=== PATIENT | female | born 1980 | race Caucasian/White ===

== ENCOUNTER 2016-07-12 23:24 | Inpatient (IN) | payer SELFPAY ==
[2016-07-12 23:39] VITALS: BMI 21.6
[2016-07-12] MEDS ORDERED: NS 1000 ML 1,000 ML IV SCH (23:45)
--- NOTE | 2016-07-12 23:52 | DR.GENAD ---
HPI - PCP Primary Care Physician: anahi elliott - Complaint/Symptoms Chief Complaint Doctors Comments: Patient complains of severe left facial swelling and problems swallowing after having her teeth removed yesterday in [place]. States she had surgery at Dr Mensah in [place] and she was told that she had two abscess in her teeth yesterday. She has been taking Amoxicillin and Ultram but it is not helping her pain. she is compaining of a severe headache with left facial pain. States this is the worst headache of her life. she denies fever, chills, cold or cough. Chief Complaint:: facial swelling after having all teeth removed blurred vision in left eye. bad headache hard to swallow Self Treatment fo Chief Complaint: amoxicillin, ice packs tramado, ibuprofen hour ago - Nurses notes reviewed Nurses Notes Review: Yes - Source History Provided: Patient, Family Member - Mode of Arrival Mode of Arrival: Ambulatory - Timing Onset of Chief Complaint: 07/12/16 Came on: Gradually - Duration Duration: Constant How lon Duration: Days - Location Location: left facial swelling - Modifying Factors Worsens:: nothing Improves:: nothing PMH - PMH Past Medical History: Yes Past Medical History: Arthritis Past Surgical History: Yes Surgical History: Appendectomy, Cholecystectomy, Spleenectomy, Tonsillectomy - Family History History of Family Medical Conditions: Yes Family Medical History: [place], Coronary Artery Disease, Hypertension - Social History Does patient currently use any type of tobacco product: No Have you used tobacco products in the last 12 months: Yes Type of Tobacco Use: Cigarettes How many years tobacco product used: 6 Does any household member use tobacco: No Alcohol Use: None Do you use any recreational Drugs:: No Lives With: Spouse Lives Where: Home - infectious screening In the last 2 months have you had wt loss of >10#?: YES Have you had fever, night sweats or hemotysis?: No Have you traveled outside the country in the last 6 months?: No Isolation: Standard ROS - Review of Systems Constitutional: No Symptoms Reported, Loss of Appetite. negative: See HPI, Chills, Diaphoresis, Fever, Malaise, Weakness, Irritable, Fatigue, Other Eyes: No Symptoms Reported, Blurred Vision (left eye blurred) ENTM: No Symptoms Reported, Mouth Pain, Mouth Swelling (left lower lip with ecchymosis, swelling;), Throat Pain Respiratoy: No Symptoms Reported Cardiovascular: No Symptoms Reported. negative: See HPI, Chest Pain, Edema, Palpitations, Syncope, Cyanosis, Skin Mottling, Other Gastrointestinal/Abdominal: No Symptoms Reported Genitourinary: No Symptoms Reported Neurological: No Symptoms Reported Musculoskeletal: No Symptoms Reported Integumentary: No Symptoms Reported Hematologic/Lymphatic: No Symptoms Reported Endocrine: No Symptoms Reported, Decreased Appetite Psychiatric: No Symptoms Reported. negative: See HPI, Anxiety, Depression, Hallucinations, Excessive crying, Suicidal, Other PE - Vital Signs Vitals: Temperature 98.8 F Pulse Rate 68 Respiratory Rate 16 Blood Pressure [Right Arm] 129/80 Blood Pressure 142/75 O2 Sat by Pulse Oximetry 97 - General Limitations: No Limitations General Appearance: Alert, In Distress (moderate) - Head Head Exam: Normal Inspection, Atraumatic (left facial swelling, ecchymosis, lip with ecchymosis; swelling around left eye; right jaw with slight swelling and erythema. Severe bruising left face), Normocephalic - Eyes Eye exam: Normal Appearance, PERRL, EOMI, Periorbital Swelling (left), Periorbital Tenderness (left). negative: Scleral Icterus, Conjunctival Injection, Nystagmus, Miosis, Mydrasis, Other - ENT ENT Exam: Normal Exam, Normal Oropharynx, Normal External Ear Exam, TM's Normal Bilaterally (swelling left jaw, lips and mouth. Mouth with surgical sutures, ecchymosis gum with clots) TM/Canal Exam: Bilateral Normal Nose Exam: Normal Nose Exam, Sinus Tenderness Mouth Exam: Normal Inspection, Lip Swelling (left lower lip swollen) Throat Exam: Normal Inspection - Neck Neck Exam: Normal Inspection, Full ROM, Trachea Midline - Chest Chest Inspection: Normal Inspection, Symmetric Chest Wall Rise - Respiratory Respiratory Exam: Normal Lung Sounds Bilat Respiratory Exam: Bilateral Clear to Auscultation - Cardiovascular Cardiovascular Exam: Regular Rate, Normal Rhythm, Normal Heart Sounds - Abdominal Exam Abdominal Exam: Normal Inspection, Normal Bowel Sounds, Soft Abdominal Tenderness: negative: RUQ, RLQ, LUQ, LLQ, Epigastrium, Suprapubic, Diffuse, Mild, Moderate, Severe, Other - Extremities Extremities Exam: Normal Inspection, Full ROM, Normal Capillary Refill. negative: Tenderness, Edema, Joint Swelling, Calf Tenderness, Other - Back Back Exam: Normal Inspection, Full ROM - Neurologic Neurological Exam: Alert, Oriented X3, CN II-XII Intact, Normal Gait, Reflexes Normal - Psychiatric Psychiatric Exam: Normal Affect, Normal Mood - Skin Skin Exam: Warm, Dry, Intact, Normal Color, Erythema Course - Reevaluation 1st: Improved - Consultation Called: 03:14 Call Returned: 03:14 (Dr. Hummel to admit) - Education/Counseling Education/Counseling: Patient, Education Educated On: Treatment, Diagnosis, Prognosis, Needs for Follow Up ROR - Labs Reviewed Laboratory Results Reviewed?: Yes (all labs and x-ray results reviewed and discussed with patient) Result Diagrams: 07/12/16 23:55 07/12/16 23:55 Laboratory: WBC 14.9 X10^3/uL (3.6-10.0) H 07/12/16 23:55 RBC 3.92 X10^6/uL (3.5-5.4) 07/12/16 23:55 Hgb 12.1 g/dL (12.0-16.0) 07/12/16 23:55 Hct 36.7 % (36.0-47.0) 07/12/16 23:55 MCV 93.5 fL (80.0-100.0) 07/12/16 23:55 MCH 30.9 pg (27.0-34.0) 07/12/16 23:55 MCHC 33.0 g/dL (33.0-35.0) 07/12/16 23:55 RDW 14.3 % (11.6-16.5) 07/12/16 23:55 Plt Count 227 X10^3/uL (150.0-450.0) 07/12/16 23:55 Plt Count Comment Adequate (ADEQUATE) 07/12/16 23:55 MPV 11.4 fL (7.4-11.0) H 07/12/16 23:55 Neut % 68.1 % (42.0-75.0) 07/12/16 23:55 Lymph % 21.7 % (21.0-51.0) 07/12/16 23:55 [place] % 9.5 % (0.0-13.0) 07/12/16 23:55 Eos % 0.2 % (0.9-2.9) L 07/12/16 23:55 Baso % 0.5 % (0.2-1.0) 07/12/16 23:55 Neut # 10.1 x10^3/uL (2.2-4.8) H 07/12/16 23:55 Lymph # 3.2 X10^3/uL (1.3-2.9) H 07/12/16 23:55 [place] # 1.4 x10^3/uL (0.3-0.8) H 07/12/16 23:55 Eos # 0.0 x10^3/uL (0.0-0.2) 07/12/16 23:55 Baso # 0.1 X10^3/uL (0.0-0.1) 07/12/16 23:55 Absolute Nucleated RBC 0.1 /100WBC 07/12/16 23:55 Plt Morphology Comment Normal (NORMAL) 07/12/16 23:55 RBC Morphology Normal (NORMAL) 07/12/16 23:55 INR Target Range - 07/12/16 23:55 INR 1.02 (0.8-1.3) 07/12/16 23:55 PTT 37.1 SECONDS (22.9-36.5) H 07/12/16 23:55 PTT Comment - 07/12/16 23:55 Sodium 140 mmol/L (136-145) 07/12/16 23:55 Corrected Sodium TNP 07/12/16 23:55 Potassium 3.7 mmol/L (3.5-5.1) 07/12/16 23:55 Chloride 104 mmol/L (98-107) 07/12/16 23:55 Carbon Dioxide 27.7 mmol/L (21-32) 07/12/16 23:55 BUN 10 mg/dL (7-18) 07/12/16 23:55 Creatinine 0.56 mg/dL (0.55-1.02) 07/12/16 23:55 Est GFR (MDRD) Af Amer > 60 (>60) 07/12/16 23:55 Est GFR (MDRD) Non-Af > 60 (>60) 07/12/16 23:55 Glucose 99 mg/dL (65-99) 07/12/16 23:55 Calcium 8.8 mg/dL (8.5-10.1) 07/12/16 23:55 Corrected Calcium TNP 07/12/16 23:55 Magnesium 2.0 mg/dL (1.7-2.9) 07/12/16 23:55 Total Bilirubin 0.60 mg/dL (0.2-1.0) 07/12/16 23:55 AST 19 Units/L (15-37) 07/12/16 23:55 ALT 29 Units/L (12-78) 07/12/16 23:55 Alkaline Phosphatase 122 Units/L (46-116) H 07/12/16 23:55 Creatine Kinase 118 Units/L (26-192) 07/12/16 23:55 CK-MB (CK-2) 1.2 ng/mL (0-4.0) 07/12/16 23:55 CK/CKMB % Calc 1.0 % (<4) 07/12/16 23:55 Troponin I < 0.02 ng/mL (0-1.5) 07/12/16 23:55 Total Protein 7.4 g/dL (6.4-8.2) 07/12/16 23:55 Albumin 3.7 g/dL (3.4-5.0) 07/12/16 23:55 Globulin 3.7 g/dL (2.5-4.5) 07/12/16 23:55 Albumin/Globulin Ratio 1.0 Ratio (1.1-2.1) L 07/12/16 23:55 - XRAY XRAY Interpreted by: Radiologist (CT facial bone: Soft tissue swelling of face suggest generalized edema vs cellulitis) XRAY Findings: CT Brain: No acute intracranial process identified - Diagnosis Discharge Problem: Cellulitis diffuse, face, Cellulitis of gingiva, Facial edema, s/p multiple dental extractions Ethmoid sinusitis Qualifiers: Chronicity: acute - Discharge Plan Disposition: ADMITTED INPATIENT Condition: Stable - Follow ups/Referrals Follow ups/Referrals: MARIZA ELLIOTT [Primary Care Provider] - 3 days - Instructions
[2016-07-12] MEDS ORDERED: MORPHINE SULFATE INJ 2 MG IVP ONE (23:59)
[2016-07-13] MEDS ORDERED: NS 1000 ML 1,000 ML ONE (00:25)
[2016-07-13] MEDS ORDERED: MORPHINE SULFATE INJ 2 MG ONE (00:26)
[2016-07-13 00:41] LABS: BASOPHILS # (AUTO) 0.1 X10^3/uL (0.0-0.1); BASOPHILS % (AUTO) 0.5 % (0.2-1.0); EOSINOPHILS % (AUTO) 0.2 % (0.9-2.9); HEMATOCRIT 36.7 % (36.0-47.0); HEMOGLOBIN 12.1 g/dL (12.0-16.0); LYMPHOCYTES # (AUTO) 3.2 X10^3/uL (1.3-2.9); LYMPHOCYTES % (AUTO) 21.7 % (21.0-51.0); MEAN CORPUSCULAR HEMOGLOBIN 30.9 pg (27.0-34.0); MEAN CORPUSCULAR VOLUME 93.5 fL (80.0-100.0); MEAN PLATELET VOLUME 11.4 fL (7.4-11.0); MONOCYTES # (AUTO) 1.4 x10^3/uL (0.3-0.8); MONOCYTES % (AUTO) 9.5 % (0.0-13.0); NEUTROPHILS # (AUTO) 10.1 x10^3/uL (2.2-4.8); NEUTROPHILS % (AUTO) 68.1 % (42.0-75.0); PLATELET COUNT 227 X10^3/uL (150.0-450.0); RED BLOOD COUNT 3.92 X10^6/uL (3.5-5.4); RED CELL DISTRIBUTION WIDTH 14.3 % (11.6-16.5)
[2016-07-13 00:47] LABS: BLOOD UREA NITROGEN 10 mg/dL (7-18); CALCIUM 8.8 mg/dL (8.5-10.1); CARBON DIOXIDE 27.7 mmol/L (21-32); CHLORIDE 104 mmol/L (98-107); CREATININE 0.56 mg/dL (0.55-1.02); GLUCOSE 99 mg/dL (65-99); SODIUM 140 mmol/L (136-145); TROPONIN I < 0.02 ng/mL (0-1.5); eGFR BLACK RACES > 60 (>60); eGFR NON BLACK RACES > 60 (>60)
[2016-07-13 01:00] LABS: PLATELET MORPHOLOGY COMMENT NORMAL (NORMAL)
--- NOTE | 2016-07-13 01:02 | CT ---
CT brain without contrast Indication: Headache after dental surgery Comparison: 02/15/2015 Technique: Multiple axial images of the brain were obtained from the skull base to the vertex without administr ation of IV contrast. Coronal and sagittal images were also provided. Radiation dose reduction techniques were performed utilizing adjustment for MA/kVP based on patient body size. Findings: No acute intraparenchymal hemorrhage or mass can be identified. No extra-axial fluid collections ar e seen. No alteration in the attenuation of the brain parenchyma can be identified to suggest acute or subacute ischemic change. The ventricular system is symmetric and nondilated. The extracranial structures are grossly unremarkable. IMPRESSION: 1. No acute intracranial process is identified. Reported By:
[2016-07-13 01:06] LABS: ALANINE AMINOTRANSFERASE 29 Units/L (12-78); ALBUMIN 3.7 g/dL (3.4-5.0); ALKALINE PHOSPHATASE 122 Units/L (46-116); ASPARTATE AMINO TRANSFERASE 19 Units/L (15-37); CREATINE KINASE 118 Units/L (26-192); CREATINE KINASE MB 1.2 ng/mL (0-4.0); TOTAL PROTEIN 7.4 g/dL (6.4-8.2)
--- NOTE | 2016-07-13 01:15 | CT ---
CT facial bones without contrast Indication: fascial edema after tooth extraction 1 day prior Comparison: none available Technique: Multiple axial images of the facial structures were obtained from the mandible to superio r portions of the orbits. Radiation dose reduction techniques were performed utilizing adjustment for MA/kVP based on patient body size. Findings: The patient is edentulous. There is diffuse soft tissue swelling within the face without localizing fluid collection or abscess identified given the limitations of a noncontrast examination. Aside for minimal mucosal thickening of the posterior left ethmoid air cells. The ethmoid, sphenoid, maxillar y and frontal sinuses are clear. Mastoid air cells are clear. No acute facial bone fracture. Mandibl e is normal. Impression: Generalized soft tissue swelling within the face without localizing fluid collection or abscess formation identified given the limitations of a noncontrast examination. Clinical correlatio n is needed as both generalized edema versus cellulitis are considerations based on imaging findings . Reported By:
[2016-07-13] MEDS ORDERED: VANCOMYCIN HCL 1 GM VIAL IV STA (02:43)
[2016-07-13] MEDS ORDERED: PHENERGAN TAB 25 MG PO PRN (03:19)
[2016-07-13] MEDS ORDERED: REGLAN TAB 10 MG PO PRN (03:19)
[2016-07-13] MEDS ORDERED: ZOFRAN INJ 4 MG VIAL IVP PRN (03:23)
[2016-07-13] MEDS ORDERED: VANCOMYCIN 1 GM IV ONE (03:25)
--- NOTE | 2016-07-13 03:27 | RAD ---
AP Chest Indication: Fascial edema Comparison: 02/06/2016 Findings: The trachea is midline. The cardiac silhouette is unremarkable. The lungs are clear without focal infiltrate or effusion. The bony thorax is unremarkable. IMPRESSION: 1. No acute cardiopulmonary abnormality. Reported By:
[2016-07-13] MEDS ORDERED: MERREM VIAL ONE (03:28)
[2016-07-13] MEDS ORDERED: NS 100 ML IV 100 ML IV ONE ×2 (03:29→14:11)
[2016-07-13] MEDS: MERREM VIAL 1,000 MG in NS 100 ML IV 100 ML IV SCH ×3 (03:36→14:36)
[2016-07-13] MEDS: MORPHINE SULFATE INJ 4 MG IVP PRN ×4 (04:37→13:36)
[2016-07-13] MEDS: D5 1/2 NS + KCL 20 MEQ/L 1,000 ML IV SCH ×3 (06:28→21:03)
[2016-07-13] MEDS: MOTRIN TAB 600 MG PO PRN ×2 (06:41→15:06)
[2016-07-13] MEDS: PROTONIX INJ 40 MG VIAL IVP SCH (09:27)
[2016-07-13] MEDS: NORCO 5/325 MG TAB PO PRN ×2 (09:28→23:27)
[2016-07-13] MEDS: LOVENOX INJ 40 MG SYR SC SCH (09:29)
[2016-07-13] MEDS: BACTRIM DS TAB PO SCH ×2 (13:38→22:03)
[2016-07-13] MEDS ORDERED: NS 100 ML IV + SPIKE MINIBAG* 100 ML IV ONE ×2 (14:10→21:59)
[2016-07-13] MEDS ORDERED: TORADOL 30 MG VIAL IVP PRN (16:28)
[2016-07-13] MEDS: DILAUDID IVP PRN (19:58)
[2016-07-13] MEDS: ZOSYN VIAL 4.5 GM IV SCH (22:03)
[2016-07-14] MEDS: DILAUDID IVP PRN ×5 (04:04→20:28)
[2016-07-14] MEDS ORDERED: NS 100 ML IV + SPIKE MINIBAG* 100 ML IV ONE ×3 (04:07→20:08)
[2016-07-14 05:16] LABS: BASOPHILS # (AUTO) 0.1 X10^3/uL (0.0-0.1); BASOPHILS % (AUTO) 1.1 % (0.2-1.0); EOSINOPHILS # (AUTO) 0.1 x10^3/uL (0.0-0.2); HEMATOCRIT 34.7 % (36.0-47.0); HEMOGLOBIN 11.5 g/dL (12.0-16.0); LYMPHOCYTES # (AUTO) 5.7 X10^3/uL (1.3-2.9); LYMPHOCYTES % (AUTO) 53.4 % (21.0-51.0); MEAN CORPUSCULAR HEMOGLOBIN 30.8 pg (27.0-34.0); MEAN CORPUSCULAR HGB CONC 33.1 g/dL (33.0-35.0); MEAN PLATELET VOLUME 10.5 fL (7.4-11.0); MONOCYTES # (AUTO) 1.2 x10^3/uL (0.3-0.8); MONOCYTES % (AUTO) 11.7 % (0.0-13.0); NEUTROPHILS # (AUTO) 3.5 x10^3/uL (2.2-4.8); NEUTROPHILS % (AUTO) 32.8 % (42.0-75.0); PLATELET COUNT 214 X10^3/uL (150.0-450.0); RED BLOOD COUNT 3.73 X10^6/uL (3.5-5.4); RED CELL DISTRIBUTION WIDTH 14.1 % (11.6-16.5); WHITE BLOOD COUNT 10.7 X10^3/uL (3.6-10.0)
[2016-07-14] MEDS: ZOSYN VIAL 4.5 GM IV SCH ×3 (05:21→22:11)
[2016-07-14] MEDS: D5 1/2 NS + KCL 20 MEQ/L 1,000 ML IV SCH ×5 (05:21→23:05)
[2016-07-14 05:22] LABS: ALANINE AMINOTRANSFERASE 41 Units/L (12-78); ALBUMIN 3.1 g/dL (3.4-5.0); ALKALINE PHOSPHATASE 112 Units/L (46-116); ASPARTATE AMINO TRANSFERASE 48 Units/L (15-37); BLOOD UREA NITROGEN 8 mg/dL (7-18); CALCIUM 8.5 mg/dL (8.5-10.1); CARBON DIOXIDE 28.1 mmol/L (21-32); CHLORIDE 107 mmol/L (98-107); COR CA(FOR HYPOALB) 9.2 mg/dL (8.5-10.1); CREATININE 0.58 mg/dL (0.55-1.02); GLUCOSE 103 mg/dL (65-99); SODIUM 142 mmol/L (136-145); TOTAL PROTEIN 6.7 g/dL (6.4-8.2); eGFR BLACK RACES > 60 (>60); eGFR NON BLACK RACES > 60 (>60)
[2016-07-14 05:55] LABS: GIANT PLATELET FEW
[2016-07-14 05:56] LABS: PLATELET MORPHOLOGY COMMENT ABNORMAL (NORMAL)
[2016-07-14] MEDS: NORCO 5/325 MG TAB PO PRN ×3 (06:39→23:41)
[2016-07-14] MEDS: LOVENOX INJ 40 MG SYR SC SCH (08:45)
[2016-07-14] MEDS: PROTONIX INJ 40 MG VIAL IVP SCH (08:48)
[2016-07-14] MEDS: BACTRIM DS TAB PO SCH ×2 (08:48→20:28)
[2016-07-14] MEDS: MORPHINE SULFATE INJ 4 MG IVP PRN (08:49)
[2016-07-14] MEDS: MOTRIN TAB 600 MG PO PRN (10:00)
[2016-07-14 10:26] LABS: WHITE BLOOD COUNT 15.7 X10^3/uL (3.6-10.0)
--- NOTE | 2016-07-14 11:51 | DR.H&P ---
H&P - History & Physical for Day of: H&P Date: 07/13/16 - Chief Complaint Chief Complaint: facial pain/swelling, severe headache - Allergies Allergies/Adverse Reactions: Allergies Allergy/AdvReac Type Severity Reaction Status Date / Time Levofloxacin [From Levaquin] Allergy Verified 02/06/16 17:22 Moxifloxacin [From Avelox] Allergy Verified 02/06/16 17:22 - History of Present Illness History of Present Illness: The patient is a 36-year-old white female is a primary care patient at [facility], who underwent extensive bilateral, upper dental extractions in [facility] approximately 1-2 days ago. The patient presents to the emergency room complaining of severe bilateral facial pain, bruising, and swelling associated with an intractable headache. The patient was noted to have sutures in the upper, bilateral gums at the site of her previous extractions with no evidence of abscess formation or purulent drainage. CT scan of the head was unremarkable except for left, ethmoid sinusitis. Patient was started on IV antibodies and admitted for further workup. - Past Medical History Past Medical History: Arthritis - Past Surgical History Surgical History: Appendectomy, Cholecystectomy, Spleenectomy, Tonsillectomy - Family History Family Medical History: [place], Coronary Artery Disease, Hypertension - Social History Does patient currently use any type of tobacco product: Yes Have you used tobacco products in the last 12 months: Yes Type of Tobacco Use: Cigarettes How many years tobacco product used: 6 Does any household member use tobacco: No Alcohol Use: None Drug Use: None - Review of Systems Constitutional: See HPI Eyes: No Symptoms Reported (esterday a soda a day. He'll. The urinal will forget about it) ENT: See HPI, Mouth Pain Respiratory: No Symptoms Reported Cardiovascular: No Symptoms Reported Gastrointestinal: No Symptoms Reported Genitourinary: No Symptoms Reported Musculoskeletal: No Symptoms Reported Skin: No Symptoms Reported Neurological: See HPI - Physical Exam Vital Signs: Temperature 97.6 F Pulse Rate [Right Brachial] 62 Respiratory Rate 18 Blood Pressure [Right Arm] 122/70 O2 Sat by Pulse Oximetry 98 Oriented: Normal Eyes: Normal Ear: Normal Nose: Normal Throat: Normal, Other (Sutures noted involving the upper gumline bilaterally at the site of previous extensive dental extractions) Respiratory: Clear Throughout Cardiovascular: Normal : Normal Auscultation: Bowel Sounds: Normal Palpation: Normal Tenderness: Normal Skin: Other (Extensive perioral ecchymoses consistent with hand cramps associated with previous dental extractions. Moderate erythema and marked soft tissue swelling of the upper face bilaterally in the zygomatic arch regions.) Musculoskeletal: Normal Psychiatric: Normal Mood Description: Calm Affect: Normal Speech Pattern: Clear - Assessment/Plan (1) Cellulitis diffuse, face Status: Acute Plan: 1. Admit for outpatient observation. 2. Normal saline at 100 cc per hour. 3. CT scan of the head and facial bones. 4. UA C&S. 5. CMP and CBC. 6. DC Merrem as initiated in the emergency room. 7. Zosyn 4.5 g IV every 8 hours. 8. Continue [place] 5/325; 2 tabs by mouth every 6 hours when necessary for pain. 9. Continue morphine 3-4 mg IV every 4 hours when necessary for pain. 10. Dilantin 1 mg IV every 4 hours when necessary for breakthrough pain. 11. Continue home medications. 12. For further orders see chart (2) Intractable headache Qualifiers: Headache type: H Headache chronicity pattern: H Status: Acute Plan: as above (3) Traumatic ecchymosis of face Qualifiers: Encounter type: E Narrative Support Text: due to recent dental extractions Status: Acute Plan: as above. (4) Ethmoid sinusitis Qualifiers: Chronicity: acute Recurrence: R Status: Acute Plan: as above
--- NOTE | 2016-07-14 16:42 | PCM.PROG ---
Progress Note - Progress Note for Day of Date: 07/14/16 - Subjective Subjective: CONTINUED WITH SERVERE MOUTH PAIN S/P DENTAL EXTRACTION, PT ASKING FOR SOFT DIET UNABLE TO EAT IN SEVERAL DAYS. PLAN TO CONTINUE IV ATBX, REPEAT AM LABS, PAIN CONTROL AND HYDRATION - Past Medical Family Social History Past Med/Fam/Surg Hx: No changes since H&P Allergies: Allergies Levofloxacin [From Levaquin] Allergy (Verified 02/06/16 17:22) Moxifloxacin [From Avelox] Allergy (Verified 02/06/16 17:22) - Review of Systems ROS: No change since H&P - Vital Signs and I&O's Vital Signs: Temperature 98 F Pulse Rate [Right Brachial] 66 Respiratory Rate 18 Blood Pressure [Right Arm] 125/60 O2 Sat by Pulse Oximetry 98 Intake and Output: Intake & Output 07/12/16 07/13/16 07/14/16 07/15/16 11:59 11:59 11:59 11:59 Intake Total 1462 840 Output Total 1000 Balance 462 840 - Physical Exam Oriented: Normal Eyes: Normal Ear: Normal Nose: Normal Throat: Normal, Other (Sutures noted involving the upper gumline bilaterally at the site of previous extensive dental extractions) Cardiovascular: Normal : Normal Auscultation: Bowel Sounds: Normal Tenderness: Normal Skin: Other (Extensive perioral ecchymoses consistent with hand cramps associated with previous dental extractions. Moderate erythema and marked soft tissue swelling of the upper face bilaterally in the zygomatic arch regions.) Musculoskeletal: Normal Psychiatric: Normal Mood Description: Calm Affect: Normal Speech Pattern: Clear - Laboratory and Diagnostics Result Diagrams: 07/14/16 03:50 07/14/16 03:50 Labs: Laboratory WBC 10.7 X10^3/uL (3.6-10.0) H 07/14/16 03:50 RBC 3.73 X10^6/uL (3.5-5.4) 07/14/16 03:50 Hgb 11.5 g/dL (12.0-16.0) L 07/14/16 03:50 Hct 34.7 % (36.0-47.0) L 07/14/16 03:50 MCV 93.0 fL (80.0-100.0) 07/14/16 03:50 MCH 30.8 pg (27.0-34.0) 07/14/16 03:50 MCHC 33.1 g/dL (33.0-35.0) 07/14/16 03:50 RDW 14.1 % (11.6-16.5) 07/14/16 03:50 Plt Count 214 X10^3/uL (150.0-450.0) 07/14/16 03:50 Plt Count Comment Adequate (ADEQUATE) 07/14/16 03:50 MPV 10.5 fL (7.4-11.0) 07/14/16 03:50 Neut % 32.8 % (42.0-75.0) L 07/14/16 03:50 Lymph % 53.4 % (21.0-51.0) H 07/14/16 03:50 [place] % 11.7 % (0.0-13.0) 07/14/16 03:50 Eos % 1.0 % (0.9-2.9) 07/14/16 03:50 Baso % 1.1 % (0.2-1.0) H 07/14/16 03:50 Neut # 3.5 x10^3/uL (2.2-4.8) 07/14/16 03:50 Lymph # 5.7 X10^3/uL (1.3-2.9) H 07/14/16 03:50 [place] # 1.2 x10^3/uL (0.3-0.8) H 07/14/16 03:50 Eos # 0.1 x10^3/uL (0.0-0.2) 07/14/16 03:50 Baso # 0.1 X10^3/uL (0.0-0.1) 07/14/16 03:50 Absolute Nucleated RBC 0.0 /100WBC 07/14/16 03:50 Giant Platelets Few 07/14/16 03:50 Plt Morphology Comment Abnormal (NORMAL) A 07/14/16 03:50 RBC Morphology Normal (NORMAL) 07/14/16 03:50 INR Target Range - 07/12/16 23:55 INR 1.02 (0.8-1.3) 07/12/16 23:55 PTT 37.1 SECONDS (22.9-36.5) H 07/12/16 23:55 PTT Comment - 07/12/16 23:55 Sodium 142 mmol/L (136-145) 07/14/16 03:50 Corrected Sodium TNP 07/14/16 03:50 Potassium 4.7 mmol/L (3.5-5.1) 07/14/16 03:50 Chloride 107 mmol/L (98-107) 07/14/16 03:50 Carbon Dioxide 28.1 mmol/L (21-32) 07/14/16 03:50 BUN 8 mg/dL (7-18) 07/14/16 03:50 Creatinine 0.58 mg/dL (0.55-1.02) 07/14/16 03:50 Est GFR (MDRD) Af Amer > 60 (>60) 07/14/16 03:50 Est GFR (MDRD) Non-Af > 60 (>60) 07/14/16 03:50 Glucose 103 mg/dL (65-99) H 07/14/16 03:50 Calcium 8.5 mg/dL (8.5-10.1) 07/14/16 03:50 Corrected Calcium 9.2 mg/dL (8.5-10.1) 07/14/16 03:50 Magnesium 2.0 mg/dL (1.7-2.9) 07/12/16 23:55 Total Bilirubin 0.30 mg/dL (0.2-1.0) 07/14/16 03:50 AST 48 Units/L (15-37) H 07/14/16 03:50 ALT 41 Units/L (12-78) 07/14/16 03:50 Alkaline Phosphatase 112 Units/L (46-116) 07/14/16 03:50 Creatine Kinase 118 Units/L (26-192) 07/12/16 23:55 CK-MB (CK-2) 1.2 ng/mL (0-4.0) 07/12/16 23:55 CK/CKMB % Calc 1.0 % (<4) 07/12/16 23:55 Troponin I < 0.02 ng/mL (0-1.5) 07/12/16 23:55 Total Protein 6.7 g/dL (6.4-8.2) 07/14/16 03:50 Albumin 3.1 g/dL (3.4-5.0) L 07/14/16 03:50 Globulin 3.6 g/dL (2.5-4.5) 07/14/16 03:50 Albumin/Globulin Ratio 0.9 Ratio (1.1-2.1) L 07/14/16 03:50 - Plan (1) Cellulitis diffuse, face Status: Acute Plan: CONTINUE Zosyn 4.5 g IV every 8 hours. Continue [place] 5/325; 2 tabs by mouth every 6 hours when necessary for pain. Continue morphine 3-4 mg IV every 4 hours when necessary for pain. DilaUDID 1 mg IV every 4 hours when necessary for breakthrough pain. Continue home medications (2) Cellulitis of gingiva Status: Acute (3) Ethmoid sinusitis Status: Acute Qualifiers: Chronicity: acute Recurrence: R Plan: as above
[2016-07-15] MEDS: DILAUDID IVP PRN ×7 (00:35→17:02)
[2016-07-15 05:36] LABS: ALANINE AMINOTRANSFERASE 74 Units/L (12-78); ALBUMIN 3.4 g/dL (3.4-5.0); ALKALINE PHOSPHATASE 117 Units/L (46-116); ASPARTATE AMINO TRANSFERASE 62 Units/L (15-37); BLOOD UREA NITROGEN 5 mg/dL (7-18); CALCIUM 9.2 mg/dL (8.5-10.1); CARBON DIOXIDE 30.8 mmol/L (21-32); CHLORIDE 105 mmol/L (98-107); GLUCOSE 100 mg/dL (65-99); SODIUM 141 mmol/L (136-145); TOTAL PROTEIN 7.3 g/dL (6.4-8.2); eGFR BLACK RACES > 60 (>60); eGFR NON BLACK RACES > 60 (>60)
[2016-07-15 05:55] LABS: BASOPHILS # (AUTO) 0.1 X10^3/uL (0.0-0.1); BASOPHILS % (AUTO) 0.8 % (0.2-1.0); EOSINOPHILS # (AUTO) 0.2 x10^3/uL (0.0-0.2); EOSINOPHILS % (AUTO) 1.5 % (0.9-2.9); HEMATOCRIT 36.4 % (36.0-47.0); HEMOGLOBIN 11.9 g/dL (12.0-16.0); LYMPHOCYTES # (AUTO) 5.8 X10^3/uL (1.3-2.9); LYMPHOCYTES % (AUTO) 48.8 % (21.0-51.0); MEAN CORPUSCULAR HEMOGLOBIN 30.6 pg (27.0-34.0); MEAN CORPUSCULAR HGB CONC 32.7 g/dL (33.0-35.0); MEAN CORPUSCULAR VOLUME 93.7 fL (80.0-100.0); MEAN PLATELET VOLUME 11.6 fL (7.4-11.0); MONOCYTES # (AUTO) 1.1 x10^3/uL (0.3-0.8); MONOCYTES % (AUTO) 9.1 % (0.0-13.0); NEUTROPHILS # (AUTO) 4.7 x10^3/uL (2.2-4.8); NEUTROPHILS % (AUTO) 39.8 % (42.0-75.0); PLATELET COUNT 233 X10^3/uL (150.0-450.0); RED BLOOD COUNT 3.89 X10^6/uL (3.5-5.4); RED CELL DISTRIBUTION WIDTH 14.2 % (11.6-16.5); WHITE BLOOD COUNT 11.8 X10^3/uL (3.6-10.0)
[2016-07-15 06:10] LABS: GIANT PLATELET FEW; PLATELET MORPHOLOGY COMMENT ABNORMAL (NORMAL)
[2016-07-15] MEDS: ZOSYN VIAL 4.5 GM 4.5 GM in NS 100 ML IV + SPIKE MINIBAG* 100 ML IV SCH ×3 (06:13→21:10)
[2016-07-15] MEDS: LOVENOX INJ 40 MG SYR SC SCH (08:45)
[2016-07-15] MEDS: BACTRIM DS TAB PO SCH ×2 (08:45→21:09)
[2016-07-15] MEDS: PROTONIX INJ 40 MG VIAL IVP SCH (08:46)
[2016-07-15] MEDS: NORCO 5/325 MG TAB PO PRN ×2 (12:19→21:09)
[2016-07-15] MEDS: D5 1/2 NS + KCL 20 MEQ/L 1,000 ML IV SCH ×2 (16:17→22:04)
[2016-07-15] MEDS ORDERED: AMBIEN PO ONE (18:29)
--- NOTE | 2016-07-15 18:29 | PCM.PROG ---
Progress Note - Progress Note for Day of Date: 07/15/16 - Subjective Subjective: CONTINUED WITH SERVERE MOUTH PAIN S/P DENTAL EXTRACTION, SWELLING IMPROVED. CONTINUE WITH PAIN CONTROL, DISCUSSED POSSIBLE D/C HOME TOMORROW - Past Medical Family Social History Past Med/Fam/Surg Hx: No changes since H&P Allergies: Allergies Levofloxacin [From Levaquin] Allergy (Verified 02/06/16 17:22) Moxifloxacin [From Avelox] Allergy (Verified 02/06/16 17:22) - Review of Systems ROS: No change since H&P - Vital Signs and I&O's Vital Signs: Temperature 97.8 F Pulse Rate [Right Brachial] 61 Respiratory Rate 18 Blood Pressure [Right Arm] 119/72 O2 Sat by Pulse Oximetry 95 Intake and Output: Intake & Output 07/13/16 07/14/16 07/15/16 07/16/16 11:59 11:59 11:59 11:59 Intake Total 1462 3870 360 Output Total 1000 Balance 462 3870 360 - Physical Exam Oriented: Normal Eyes: Normal Ear: Normal Nose: Normal Throat: Normal, Other (Sutures noted involving the upper gumline bilaterally at the site of previous extensive dental extractions) Cardiovascular: Normal : Normal Auscultation: Bowel Sounds: Normal Tenderness: Normal Skin: Other (Extensive perioral ecchymoses consistent with hand cramps associated with previous dental extractions. Moderate erythema and marked soft tissue swelling of the upper face bilaterally in the zygomatic arch regions.) Musculoskeletal: Normal Psychiatric: Normal Mood Description: Calm Affect: Normal Speech Pattern: Clear, Appropriate - Laboratory and Diagnostics Result Diagrams: 07/15/16 03:25 07/15/16 03:25 Labs: Laboratory WBC 11.8 X10^3/uL (3.6-10.0) H 07/15/16 03:25 RBC 3.89 X10^6/uL (3.5-5.4) 07/15/16 03:25 Hgb 11.9 g/dL (12.0-16.0) L 07/15/16 03:25 Hct 36.4 % (36.0-47.0) 07/15/16 03:25 MCV 93.7 fL (80.0-100.0) 07/15/16 03:25 MCH 30.6 pg (27.0-34.0) 07/15/16 03:25 MCHC 32.7 g/dL (33.0-35.0) L 07/15/16 03:25 RDW 14.2 % (11.6-16.5) 07/15/16 03:25 Plt Count 233 X10^3/uL (150.0-450.0) 07/15/16 03:25 Plt Count Comment Adequate (ADEQUATE) 07/15/16 03:25 MPV 11.6 fL (7.4-11.0) H 07/15/16 03:25 Neut % 39.8 % (42.0-75.0) L 07/15/16 03:25 Lymph % 48.8 % (21.0-51.0) 07/15/16 03:25 [place] % 9.1 % (0.0-13.0) 07/15/16 03:25 Eos % 1.5 % (0.9-2.9) 07/15/16 03:25 Baso % 0.8 % (0.2-1.0) 07/15/16 03:25 Neut # 4.7 x10^3/uL (2.2-4.8) 07/15/16 03:25 Lymph # 5.8 X10^3/uL (1.3-2.9) H 07/15/16 03:25 [place] # 1.1 x10^3/uL (0.3-0.8) H 07/15/16 03:25 Eos # 0.2 x10^3/uL (0.0-0.2) 07/15/16 03:25 Baso # 0.1 X10^3/uL (0.0-0.1) 07/15/16 03:25 Absolute Nucleated RBC 0.0 /100WBC 07/15/16 03:25 Giant Platelets Few 07/15/16 03:25 Plt Morphology Comment Abnormal (NORMAL) A 07/15/16 03:25 RBC Morphology Normal (NORMAL) 07/15/16 03:25 INR Target Range - 07/12/16 23:55 INR 1.02 (0.8-1.3) 07/12/16 23:55 PTT 37.1 SECONDS (22.9-36.5) H 07/12/16 23:55 PTT Comment - 07/12/16 23:55 Sodium 141 mmol/L (136-145) 07/15/16 03:25 Corrected Sodium TNP 07/15/16 03:25 Potassium 4.6 mmol/L (3.5-5.1) 07/15/16 03:25 Chloride 105 mmol/L (98-107) 07/15/16 03:25 Carbon Dioxide 30.8 mmol/L (21-32) 07/15/16 03:25 BUN 5 mg/dL (7-18) L 07/15/16 03:25 Creatinine 0.70 mg/dL (0.55-1.02) 07/15/16 03:25 Est GFR (MDRD) Af Amer > 60 (>60) 07/15/16 03:25 Est GFR (MDRD) Non-Af > 60 (>60) 07/15/16 03:25 Glucose 100 mg/dL (65-99) H 07/15/16 03:25 Calcium 9.2 mg/dL (8.5-10.1) 07/15/16 03:25 Corrected Calcium TNP 07/15/16 03:25 Magnesium 2.0 mg/dL (1.7-2.9) 07/12/16 23:55 Total Bilirubin 0.20 mg/dL (0.2-1.0) 07/15/16 03:25 AST 62 Units/L (15-37) H 07/15/16 03:25 ALT 74 Units/L (12-78) 07/15/16 03:25 Alkaline Phosphatase 117 Units/L (46-116) H 07/15/16 03:25 Creatine Kinase 118 Units/L (26-192) 07/12/16 23:55 CK-MB (CK-2) 1.2 ng/mL (0-4.0) 07/12/16 23:55 CK/CKMB % Calc 1.0 % (<4) 07/12/16 23:55 Troponin I < 0.02 ng/mL (0-1.5) 07/12/16 23:55 Total Protein 7.3 g/dL (6.4-8.2) 07/15/16 03:25 Albumin 3.4 g/dL (3.4-5.0) 07/15/16 03:25 Globulin 3.9 g/dL (2.5-4.5) 07/15/16 03:25 Albumin/Globulin Ratio 0.9 Ratio (1.1-2.1) L 07/15/16 03:25 - Plan (1) Cellulitis diffuse, face Status: Acute Plan: CONTINUE Zosyn 4.5 g IV every 8 hours. Continue [place] 5/325; 2 tabs by mouth every 6 hours when necessary for pain (2) Cellulitis of gingiva Status: Acute (3) Ethmoid sinusitis Status: Acute Qualifiers: Chronicity: acute Recurrence: R Plan: as above
[2016-07-15] MEDS: LYRICA CAP 75 MG PO SCH (21:10)
[2016-07-16] MEDS: ZOSYN VIAL 4.5 GM 4.5 GM in NS 100 ML IV + SPIKE MINIBAG* 100 ML IV SCH (05:04)
[2016-07-16] MEDS: D5 1/2 NS + KCL 20 MEQ/L 1,000 ML IV SCH (05:06)
[2016-07-16 05:33] LABS: ALANINE AMINOTRANSFERASE 66 Units/L (12-78); ALBUMIN 3.7 g/dL (3.4-5.0); ALKALINE PHOSPHATASE 138 Units/L (46-116); ASPARTATE AMINO TRANSFERASE 31 Units/L (15-37); BLOOD UREA NITROGEN 6 mg/dL (7-18); CALCIUM 9.4 mg/dL (8.5-10.1); CARBON DIOXIDE 29.4 mmol/L (21-32); CHLORIDE 101 mmol/L (98-107); CREATININE 0.79 mg/dL (0.55-1.02); GLUCOSE 99 mg/dL (65-99); SODIUM 139 mmol/L (136-145); eGFR BLACK RACES > 60 (>60); eGFR NON BLACK RACES > 60 (>60)
[2016-07-16 05:36] LABS: BASOPHILS % (AUTO) 0.4 % (0.2-1.0); EOSINOPHILS # (AUTO) 0.1 x10^3/uL (0.0-0.2); EOSINOPHILS % (AUTO) 0.9 % (0.9-2.9); HEMATOCRIT 39.1 % (36.0-47.0); LYMPHOCYTES # (AUTO) 4.6 X10^3/uL (1.3-2.9); LYMPHOCYTES % (AUTO) 44.5 % (21.0-51.0); MEAN CORPUSCULAR HGB CONC 33.2 g/dL (33.0-35.0); MEAN CORPUSCULAR VOLUME 93.5 fL (80.0-100.0); MEAN PLATELET VOLUME 11.2 fL (7.4-11.0); MONOCYTES # (AUTO) 1.1 x10^3/uL (0.3-0.8); MONOCYTES % (AUTO) 10.2 % (0.0-13.0); NEUTROPHILS # (AUTO) 4.6 x10^3/uL (2.2-4.8); PLATELET COUNT 238 X10^3/uL (150.0-450.0); RED BLOOD COUNT 4.18 X10^6/uL (3.5-5.4); RED CELL DISTRIBUTION WIDTH 14.3 % (11.6-16.5); WHITE BLOOD COUNT 10.4 X10^3/uL (3.6-10.0)
[2016-07-16 06:02] LABS: PLATELET MORPHOLOGY COMMENT ABNORMAL (NORMAL)
[2016-07-16 06:03] LABS: GIANT PLATELET RARE
[2016-07-16] MEDS: NORCO 5/325 MG TAB PO PRN (08:22)
[2016-07-16] MEDS: BACTRIM DS TAB PO SCH (08:22)
[2016-07-16] MEDS: LYRICA CAP 75 MG PO SCH (08:23)
[2016-07-16] MEDS: PROTONIX INJ 40 MG VIAL IVP SCH (08:23)
[2016-07-16] MEDS: LOVENOX INJ 40 MG SYR SC SCH (08:23)
[2016-07-16 09:44] VITALS: BP 119/82
== END 2016-07-16 13:35 | disposition home or self-care (01) | DRG 603 ==
LOC: ER 23:24 → OBS 07-13 03:16 → MED/SURG 07-13 22:10
PROVIDERS: ADMIT Internal Medicine; ATTEND Internal Medicine
DX: L03.211 Cellulitis of face (principal); J01.20 Acute ethmoidal sinusitis, unspecified; K05.00 Acute gingivitis, plaque induced; R60.0 Localized edema; Z98.818 Other dental procedure status; R51 Headache; R94.31 Abnormal electrocardiogram [ECG] [EKG]
CPT/HCPCS: 36415; 70450; 70486; 71010; 80053; 82550; 82553; 83735; 84484; 85025; 85610; 85730; 87040; 93005; 93010; 96365; 96367; 96374; 96375; 99221; 99284; A4216; A4222; C9113; Q0169; J1650; J1885; J2185; J2270; J2405; J2543; J3370

== ENCOUNTER 2017-04-26 07:28 | Emergency (ER) | payer SELFPAY ==
[2017-04-26 07:33] VITALS: BP 116/58; BMI 24.1
[2017-04-26] MEDS ORDERED: TORADOL 60 MG VIAL IM ONE (08:15)
--- NOTE | 2017-04-26 08:17 | DR.GENAD ---
HPI - HPI Comment HPI Comment: GETTING WORSE. WEAK AND DRAIN OF ENERGY. - Complaint/Symptoms Chief Complaint Doctors Comments: COUGH, CONGESTION, FEVER, BODYACHES TIMES ONE DAY. Chief Complaint:: patient stated that last night she started having body aches, fever and sore throat. - Nurses notes reviewed Nurses Notes Review: Yes - Source History Provided: Patient - Mode of Arrival Mode of Arrival: Ambulatory - Timing Onset of Chief Complaint: 04/25/17 Came on: Suddenly - Duration Duration: Constant Duration: Days - Severity Severity: Moderate PMH - PMH Past Medical History: Yes Past Medical History: Arthritis Past Surgical History: Yes Surgical History: Appendectomy, Cholecystectomy, Spleenectomy, Tonsillectomy - Family History History of Family Medical Conditions: Yes Family Medical History: [place], Coronary Artery Disease, Hypertension - Social History Does patient currently use any type of tobacco product: Yes Have you used tobacco products in the last 12 months: Yes Type of Tobacco Use: Cigarettes How many years tobacco product used: 10 Does any household member use tobacco: No Alcohol Use: None Do you use any recreational Drugs:: No Lives With: Family Lives Where: Home - infectious screening In the last 2 months have you had wt loss of >10#?: NO Have you had fever, night sweats or hemotysis?: No Have you traveled outside the country in the last 6 months?: No Isolation: Standard ROS - Review of Systems Constitutional: Chills, Fever Eyes: No Symptoms Reported ENTM: No Symptoms Reported, Ear Pain, Nose Congestion, Throat Pain Respiratoy: No Symptoms Reported Cardiovascular: No Symptoms Reported Gastrointestinal/Abdominal: No Symptoms Reported Genitourinary: No Symptoms Reported Neurological: No Symptoms Reported Musculoskeletal: No Symptoms Reported Integumentary: No Symptoms Reported Endocrine: No Symptoms Reported All Other Systems: Reviewed and Negative PE - Vital Signs Vitals: Temperature 99.4 F Pulse Rate 99 Respiratory Rate 18 Blood Pressure [Right Arm] 119/82 Blood Pressure 116/58 O2 Sat by Pulse Oximetry 98 - General Limitations: No Limitations General Appearance: Alert - Head Head Exam: Normal Inspection - Eyes Eye exam: Normal Appearance - ENT ENT Exam: Normal External Ear Exam External Ear Exam: Normal External Inspection TM/Canal Exam: Bilateral Bulging Nose Exam: Normal Nose Exam Mouth Exam: Normal Inspection Throat Exam: Normal Inspection - Neck Neck Exam: Normal Inspection - Chest Chest Inspection: Symmetric Chest Wall Rise - Respiratory Respiratory Exam: Normal Lung Sounds Bilat Respiratory Exam: Bilateral Clear to Auscultation - Cardiovascular Cardiovascular Exam: Regular Rate - Abdominal Exam Abdominal Exam: Normal Inspection - Extremities Extremities Exam: Normal Inspection - Back Back Exam: Normal Inspection - Neurologic Neurological Exam: Alert, Oriented X3 - Psychiatric Psychiatric Exam: Normal Affect, Normal Mood - Skin Skin Exam: Normal Color MDM - Differential Diagnosis Differential Diagnosis: FLU, SINUSITIS, BRONCHITIS Course - Treatment Treatment: SEE ORDERS. - Education/Counseling Education/Counseling: Patient, Education Educated On: Diagnosis, Needs for Follow Up ROR - Labs Reviewed Laboratory Results Reviewed?: Yes Result Diagrams: 04/26/17 09:32 04/26/17 09:32 Laboratory: 04/26/17 07:57 Throat Throat Culture - Preliminary WBC 27.8 X10^3/uL (3.6-10.0) H 04/26/17 09:32 RBC 4.25 X10^6/uL (3.5-5.4) 04/26/17 09:32 Hgb 13.2 g/dL (12.0-16.0) 04/26/17 09:32 Hct 39.9 % (36.0-47.0) 04/26/17 09:32 MCV 93.9 fL (80.0-100.0) 04/26/17 09:32 MCH 31.1 pg (27.0-34.0) 04/26/17 09:32 MCHC 33.1 g/dL (33.0-35.0) 04/26/17 09:32 RDW 13.8 % (11.6-16.5) 04/26/17 09:32 Plt Count 257 X10^3/uL (150.0-450.0) 04/26/17 09:32 Plt Count Comment Adequate (ADEQUATE) 04/26/17 09:32 MPV 11.1 fL (7.4-11.0) H 04/26/17 09:32 Neut % 80.6 % (42.0-75.0) H 04/26/17 09:32 Lymph % 12.5 % (21.0-51.0) L 04/26/17 09:32 Grainger % 6.4 % (0.0-13.0) 04/26/17 09:32 Eos % 0.1 % (0.9-2.9) L 04/26/17 09:32 Baso % 0.4 % (0.2-1.0) 04/26/17 09:32 Neut # 22.4 x10^3/uL (2.2-4.8) H 04/26/17 09:32 Lymph # 3.5 X10^3/uL (1.3-2.9) H 04/26/17 09:32 Grainger # 1.8 x10^3/uL (0.3-0.8) H 04/26/17 09:32 Eos # 0.0 x10^3/uL (0.0-0.2) 04/26/17 09:32 Baso # 0.1 X10^3/uL (0.0-0.1) 04/26/17 09:32 Absolute Nucleated RBC 0.0 /100WBC 04/26/17 09:32 Total Counted 100 04/26/17 09:32 Neutrophils % (Manual) 74 % (39-76) 04/26/17 09:32 Lymphocytes % (Manual) 12 % (13-43) L 04/26/17 09:32 Monocytes % (Manual) 14 % (4-9) H 04/26/17 09:32 Giant Platelets Rare 04/26/17 09:32 Plt Morphology Comment Normal (NORMAL) 04/26/17 09:32 RBC Morphology Normal (NORMAL) 04/26/17 09:32 Sodium 142 mmol/L (136-145) 04/26/17 09:32 Corrected Sodium TNP 04/26/17 09:32 Potassium 3.5 mmol/L (3.5-5.1) 04/26/17 09:32 Chloride 106 mmol/L (98-107) 04/26/17 09:32 Carbon Dioxide 24.8 mmol/L (21-32) 04/26/17 09:32 BUN 11 mg/dL (7-18) 04/26/17 09:32 Creatinine 0.79 mg/dL (0.55-1.02) 04/26/17 09:32 Est GFR (MDRD) Af Amer > 60 (>60) 04/26/17 09:32 Est GFR (MDRD) Non-Af > 60 (>60) 04/26/17 09:32 Glucose 99 mg/dL (65-99) 01/21/18 09:32 Calcium 9.3 mg/dL (8.5-10.1) 04/26/17 09:32 Corrected Calcium TNP 04/26/17:32 Total Bilirubin 0.30 mg/dL (0.2-1.0) 04/26/17 09:32 AST 18 Units/L (15-37) 04/26/17:32 ALT 42 Units/L (12-78) 04/26/17:32 Alkaline Phosphatase 137 Units/L (46-116) H 04/26/17 09:32 Total Protein 8.3 g/dL (6.4-8.2) H 04/26/17:32 Albumin 4.1 g/dL (3.4-5.0) 04/26/17: Globulin 4.2 g/dL (2.5-4.5) 04/26/17 09:32 Albumin/Globulin Ratio 1.0 Ratio (1.1-2.1) L 04/26/17 09:32 Specimen Type Clean catch urine 04/26/17: Urine Color Yellow (YELLOW) 04/26/17: Urine Appearance Clear (CLEAR) 04/26/17: Urine pH 6.0 (5.0 - 8.0) 04/26/17:33 Ur Specific Butler 1.020 (1.000-1.030) 04/26/17: Urine Protein 1+ (NEGATIVE) 04/26/17: Urine Glucose (UA) Negative (NEGATIVE) 04/26/17: Urine Ketones Negative (NEGATIVE) 04/26/17: Urine Occult Blood 1+ (NEGATIVE) 04/26/17: Urine Nitrite Negative (NEGATIVE) 04/26/17: Urine Bilirubin Negative (NEGATIVE) 04/26/17: Urine Urobilinogen Normal (NORMAL) 04/26/17: Ur Leukocyte Esterase 1+ (NEGATIVE) 04/26/17: Urine RBC 0-3 /HPF (NEGATIVE) 04/26/17: Urine WBC 0-3 /HPF (NEGATIVE) 04/26/17: Ur Squamous Epith Cells Moderate /HPF (NEGATIVE) 04/26/17: Amorphous Sediment 1+ /HPF (NEGATIVE) 01/21/18 09:33 Urine Bacteria Trace /HPF (NEGATIVE) 04/26/17 09:33 Hyaline Casts Rare /LPF (NEGATIVE) 04/26/17 09:33 Urine Mucus Moderate /HPF (NEGATIVE) 04/26/17 09:33 Ur Culture Indicated? No/not indicated 04/26/17 09:33 Influenza Type A (PCR) Negative (NEGATIVE) 04/26/17 07:57 Influenza Type B (PCR) Negative (NEGATIVE) 04/26/17 07:57 Streptococcus Screen Negative (NEGATIVE) 04/26/17 07:57 - XRAY XRAY Findings: REPORT DISCUSS RAN PATIENT. - Diagnosis Discharge Problem: Fever, Leukocytosis, Asplenia - Discharge Plan Disposition: HOME, SELF-CARE Condition: Stable Prescriptions: Amoxicillin/Potassium Clav [Augmentin 875-125 Tablet] 1 tab PO Q12H #20 tab - Follow ups/Referrals Follow ups/Referrals: MARIZA AJ [Primary Care Provider] - 3 days - Instructions Instructions: Leukocytosis, Fever, Adult, [id number] Additional Instructions: YOU ALSO HAVE SORE THROAT. RETURN TO ED IF WORSE.
[2017-04-26] MEDS ORDERED: TORADOL 60 MG VIAL ONE (08:18)
[2017-04-26 09:41] LABS: MEAN CORPUSCULAR VOLUME 93.9 fL (80.0-100.0); MEAN PLATELET VOLUME 11.1 fL (7.4-11.0)
[2017-04-26 09:42] LABS: BILIRUBIN,URINE NEGATIVE (NEGATIVE); BLOOD/HEMOGLOBIN,URINE 1+ (NEGATIVE); GLUCOSE, URINE NEGATIVE (NEGATIVE); KETONES,URINE NEGATIVE (NEGATIVE); LEUKOCYTE ESTERASE ,URINE 1+ (NEGATIVE); NITRITES,URINE NEGATIVE (NEGATIVE); PROTEIN,URINE 1+ (NEGATIVE); UROBILINOGEN,URINE NORMAL (NORMAL)
[2017-04-26 09:46] LABS: BASOPHILS # (AUTO) 0.1 X10^3/uL (0.0-0.1); BASOPHILS % (AUTO) 0.4 % (0.2-1.0); EOSINOPHILS % (AUTO) 0.1 % (0.9-2.9); HEMATOCRIT 39.9 % (36.0-47.0); HEMOGLOBIN 13.2 g/dL (12.0-16.0); LYMPHOCYTES # (AUTO) 3.5 X10^3/uL (1.3-2.9); LYMPHOCYTES % (AUTO) 12.5 % (21.0-51.0); MEAN CORPUSCULAR HEMOGLOBIN 31.1 pg (27.0-34.0); MEAN CORPUSCULAR HGB CONC 33.1 g/dL (33.0-35.0); MONOCYTES # (AUTO) 1.8 x10^3/uL (0.3-0.8); MONOCYTES % (AUTO) 6.4 % (0.0-13.0); NEUTROPHILS # (AUTO) 22.4 x10^3/uL (2.2-4.8); NEUTROPHILS % (AUTO) 80.6 % (42.0-75.0); PLATELET COUNT 257 X10^3/uL (150.0-450.0); RED BLOOD COUNT 4.25 X10^6/uL (3.5-5.4); RED CELL DISTRIBUTION WIDTH 13.8 % (11.6-16.5); WHITE BLOOD COUNT 27.8 X10^3/uL (3.6-10.0)
[2017-04-26 09:51] LABS: APPEARANCE,URINE CLEAR (CLEAR); COLOR,URINE YELLOW (YELLOW)
[2017-04-26 10:01] LABS: ALANINE AMINOTRANSFERASE 42 Units/L (12-78); ALBUMIN 4.1 g/dL (3.4-5.0); ALKALINE PHOSPHATASE 137 Units/L (46-116); ASPARTATE AMINO TRANSFERASE 18 Units/L (15-37); BLOOD UREA NITROGEN 11 mg/dL (7-18); CALCIUM 9.3 mg/dL (8.5-10.1); CARBON DIOXIDE 24.8 mmol/L (21-32); CHLORIDE 106 mmol/L (98-107); CREATININE 0.79 mg/dL (0.55-1.02); SODIUM 142 mmol/L (136-145); TOTAL PROTEIN 8.3 g/dL (6.4-8.2); eGFR BLACK RACES > 60 (>60); eGFR NON BLACK RACES > 60 (>60)
[2017-04-26 10:14] LABS: GIANT PLATELET RARE; PLATELET MORPHOLOGY COMMENT NORMAL (NORMAL)
--- NOTE | 2017-04-26 10:25 | RAD ---
HISTORY: Fever, malaise Study: PA and lateral chest Comparison: July 13, 2016 Findings: The trachea is midline. The cardiac silhouette is unremarkable. The lungs are clear without focal m ass or consolidation. There is no effusion or pneumothorax. The bony thorax is grossly unremarkable . IMPRESSION: No acute cardiopulmonary disease. Reported By:
[2017-04-26 10:43] LABS: BACTERIA,URINE TRACE /HPF (NEGATIVE); MUCUS,URINE MODERATE /HPF (NEGATIVE); RBC,URINE 0-3 /HPF (NEGATIVE); SQUAMOUS EPITHELIAL CELL,UR MODERATE /HPF (NEGATIVE)
[2017-04-26 10:44] LABS: AMORPHOUS SEDIMENT,UR 1+ /HPF (NEGATIVE); HYALINE CASTS, URINE RARE /LPF (NEGATIVE)
[2017-04-26] MEDS ORDERED: ROCEPHIN VIAL 1 GM IM ONE (10:48)
[2017-04-26] MEDS ORDERED: XYLOCAINE 1 % (PLAIN) ONE (10:53)
[2017-04-26] MEDS ORDERED: ROCEPHIN VIAL 1 GM ONE (10:53)
== END 2017-04-26 11:10 | disposition home or self-care (01) ==
LOC: ER 07:28
DX: D72.829 Elevated white blood cell count, unspecified (principal); Q89.01 Asplenia (congenital); R50.9 Fever, unspecified
CPT/HCPCS: 36415; 71046; 80053; 81001; 85025; 87070; 87502; 87880; 96372; 99282; J0696; J1885; J2001

== ENCOUNTER → 2017-05-06 | Outpatient (CLI) | payer SELFPAY ==
[2017-04-26 07:33] VITALS: BP 116/58
[2017-05-06 15:56] LABS: BASOPHILS # (AUTO) 0.3 X10^3/uL (0.0-0.1); EOSINOPHILS # (AUTO) 0.1 x10^3/uL (0.0-0.2); EOSINOPHILS % (AUTO) 0.6 % (0.9-2.9); HEMATOCRIT 41.6 % (36.0-47.0); LYMPHOCYTES % (AUTO) 40.2 % (21.0-51.0); MEAN CORPUSCULAR HEMOGLOBIN 31.6 pg (27.0-34.0); MEAN CORPUSCULAR HGB CONC 33.6 g/dL (33.0-35.0); MEAN CORPUSCULAR VOLUME 94.2 fL (80.0-100.0); MEAN PLATELET VOLUME 11.2 fL (7.4-11.0); MONOCYTES # (AUTO) 0.7 x10^3/uL (0.3-0.8); NEUTROPHILS # (AUTO) 7.8 x10^3/uL (2.2-4.8); NEUTROPHILS % (AUTO) 52.2 % (42.0-75.0); PLATELET COUNT 353 X10^3/uL (150.0-450.0); RED BLOOD COUNT 4.42 X10^6/uL (3.5-5.4); RED CELL DISTRIBUTION WIDTH 14.4 % (11.6-16.5)
[2017-05-06 16:27] LABS: WHITE BLOOD COUNT 15.7 X10^3/uL (3.6-10.0)
[2017-05-06 16:28] LABS: GIANT PLATELET RARE; PLATELET MORPHOLOGY COMMENT ABNORMAL (NORMAL)
[2017-05-06 16:29] LABS: ERYTHROCYTE SEDIMENTATION RATE 77 MM/HOUR (0-20)
[2017-05-06 16:31] LABS: STOOL FOR WBC NEGATIVE (NEGATIVE)
== END ==
LOC: LAB 15:15
PROVIDERS: ATTEND Nurse Practitioner Family
DX: D72.828 Other elevated white blood cell count (principal)
CPT/HCPCS: 36415; 82270; 83630; 85025; 85652; 86140; 87040; 87045; 87427; 87899